=== PATIENT | female | born 1955 | race Caucasian/White ===

== ENCOUNTER → 2021-06-04 | Outpatient (CLI) ==
[~2021-06-04] MED LIST: ASPI81TA26 PO; CETI10TA4 PO; CORE25TA PO; DICY20TA20 PO; ENAL1TAB46 PO; FLON1SPR; FLUT11IN INH; LEXA1TAB PO; OMEP40CA4 PO; PROAAER10 INH; SING10TA32 PO; SPIR-10 PO; TOPA50TA8 PO; VITA400C56 PO; XANA0.5T PO; [UNRECOGNIZED DRUG - CODE] PO
== END ==
LOC: M LABSMTC 10:26
PROVIDERS: ATTEND Anesthesiology
DX: Z01.818 Encounter for other preprocedural examination (principal); Z11.52 Encounter for screening for COVID-19

== ENCOUNTER 2021-06-09 11:05 | Day surgery (SDC) | payer MEDICARE, OTHER ==
[~2021-06-09] VITALS: Ht 160 cm; Wt 67.9 kg
[2021-06-09] MEDS ORDERED: ACET325C5 PO (11:35)
[2021-06-09] MEDS ORDERED: ATOR1TAB21 PO (11:35)
[2021-06-09] MEDS ORDERED: propofoL 200 MG/20 ML VIAL As Ordered ONE (12:46)
[2021-06-09] MEDS ORDERED: ACETAMINOPHEN 1000MG 100ML IV BTL (OFIRMEV) (J0131 PER 10MG) As Ordered ONE (12:46)
[2021-06-09] MEDS ORDERED: LIDOCAINE 2% 100MG/5ML SDV (FOR ANES.) As Ordered ONE (12:46)
[2021-06-09] MEDS ORDERED: MIDAZOLAM INJ 2MG/2ML VIAL (J2250 PER 1MG) As Ordered ONE (12:46)
[2021-06-09] MEDS ORDERED: dexameTHASONE 4 MG/ML 1ML VIAL (J1100 PER 1MG) As Ordered ONE (12:46)
[2021-06-09] MEDS ORDERED: ONDANSETRON 4MG/2ML VIAL As Ordered ONE (12:46)
[2021-06-09] MEDS ORDERED: fentaNYL 100 MCG/2 ML INJECTION As Ordered ONE (12:46)
[2021-06-09] MEDS ORDERED: LR 1,000 ML IV SCH ×2 (16:35)
[2021-06-09] MEDS ORDERED: ONDANSETRON 4MG/2ML VIAL IV PRN (16:35)
[2021-06-09] MEDS ORDERED: fentaNYL 100 MCG/2 ML INJECTION IV PRN (16:35)
[2021-06-09] MEDS ORDERED: NORCO, ANEXSIA 5/325MG TABLET (HYDROcodone/ACETAMINOPHEN) PO PRN (16:35)
[2021-06-09 17:20] VITALS: BP 111/58
== END 2021-06-09 17:32 | disposition home or self-care (01) ==
LOC: M SDC 11:05
PROVIDERS: ATTEND Obstetrics & Gynecology
DX: R31.9 Hematuria, unspecified (principal); E78.5 Hyperlipidemia, unspecified; I25.2 Old myocardial infarction; I10 Essential (primary) hypertension; Z95.0 Presence of cardiac pacemaker; L40.9 Psoriasis, unspecified; F41.9 Anxiety disorder, unspecified; F32.9 Major depressive disorder, single episode, unspecified; Z79.51 Long term (current) use of inhaled steroids; J45.909 Unspecified asthma, uncomplicated; Z88.0 Allergy status to penicillin; Z88.2 Allergy status to sulfonamides; Z88.8 Allergy status to other drugs, medicaments and biological substances; Z91.018 Allergy to other foods; Z79.899 Other long term (current) drug therapy; Z79.82 Long term (current) use of aspirin
CPT/HCPCS: 52000; J0131; J1100; J2250; J2405; J3010

== ENCOUNTER 2022-11-02 12:09 | Emergency (ER) | payer MEDICARE, OTHER ==
[~2022-11-02] VITALS: Ht 160 cm; Wt 71.0 kg
[~2022-11-02 12:09] MED LIST changes: +ACET325C5 PO; +ATOR1TAB21 PO; -FLUT11IN INH; +FLUT12AE6 INH; +MONT-5 PO; -SING10TA32 PO
[2022-11-02 12:10] VITALS: BP 119/62; TEMP 96.1; O2SAT 100
[2022-11-02 12:59] LABS: BASO % 0.6 % (0.0-1.0); EOS # 0.3 10^3/uL (0.0-0.5); EOS % 4.5 % (0.0-3.0); HEMATOCRIT 40.2 % (36.0-47.0); HEMOGLOBIN 13.4 g/dl (12.0-15.5); LYMPH # 1.3 10^3/uL (1.5-5.0); LYMPH % 20.7 % (24.0-44.0); MEAN CORPUSCULAR HEMOGLOBIN 30.8 pg (27.0-33.0); MEAN CORPUSCULAR HGB CONC 33.3 g/dl (32.0-36.5); MEAN CORPUSCULAR VOLUME 92.4 fl (80.0-96.0); MONO # 0.6 10^3/uL (0.0-0.8); MONO % 9.1 % (2.0-8.0); NEUTROPHILS # 4.2 10^3/uL (1.5-8.5); NEUTROPHILS % 64.5 % (36.0-66.0); PLATELET COUNT, AUTOMATED 211 10^3/uL (150-450); RED BLOOD COUNT 4.35 10^6/uL (4.00-5.40); WHITE BLOOD COUNT 6.5 10^3/uL (4.0-10.0)
[2022-11-02 13:04] LABS: CK-MB VALUE MASS 1.9 NG/ML (<3.6); LIPASE 62 U/L (12-53)
[2022-11-02 13:06] LABS: ALBUMIN 3.6 G/DL (3.2-5.2); ALKALINE PHOSPHATASE 171 U/L (46-116); ALT/SGPT 18 U/L (7.0-40); AST/SGOT 13 U/L (<34); BILIRUBIN,DIRECT < 0.1 MG/DL (<0.4); BILIRUBIN,TOTAL 0.3 MG/DL (0.3-1.2); BLOOD UREA NITROGEN 14 MG/DL (9-23); CALCIUM LEVEL 8.3 MG/DL (8.3-10.6); CARBON DIOXIDE LEVEL 28 MMOL/L (20-31); CHLORIDE LEVEL 103 MMOL/L (98-107); CPK CREATINE PHOSPHOKINASE 120 U/L (34-145); CREATININE FOR GFR 0.74 MG/DL (0.55-1.30); GLOMERULAR FILTRATION RATE > 60.0 (>45); GLUCOSE, FASTING 92 MG/DL (74-106); MB/CK RELATIVE INDEX 1.58 (< OR =4); POTASSIUM SERUM 4.4 MMOL/L (3.5-5.1); SODIUM LEVEL 136 MMOL/L (136-145); TOTAL PROTEIN 6.7 G/DL (5.7-8.2)
[2022-11-02] MEDS ORDERED: ISOVUE-370 76% 100ML VIAL As Ordered ONE (14:07)
[2022-11-02] MEDS ORDERED: predniSONE 20 MG TAB PO ONE (16:15)
[2022-11-02] MEDS ORDERED: PRED20TA PO (16:19)
== END 2022-11-02 16:43 | disposition home or self-care (01) ==
LOC: M ED 12:09
DX: R07.9 Chest pain, unspecified (principal); J45.901 Unspecified asthma with (acute) exacerbation; I25.2 Old myocardial infarction; I10 Essential (primary) hypertension; K21.9 Gastro-esophageal reflux disease without esophagitis; K58.9 Irritable bowel syndrome, unspecified; F41.9 Anxiety disorder, unspecified; Z87.891 Personal history of nicotine dependence; Z95.0 Presence of cardiac pacemaker; Z88.0 Allergy status to penicillin; Z88.2 Allergy status to sulfonamides; Z88.8 Allergy status to other drugs, medicaments and biological substances; Z91.018 Allergy to other foods; Z79.52 Long term (current) use of systemic steroids; Z79.82 Long term (current) use of aspirin; Z79.899 Other long term (current) drug therapy
CPT/HCPCS: 36415; 71046; 71275; 80048; 80076; 82550; 82553; 83690; 83880; 84484; 85025; 93005; 99284; J7512; Q9967

== ENCOUNTER 2023-01-01 15:12 | Observation (INO) | payer MEDICARE, OTHER ==
[~2023-01-01] VITALS: Ht 160 cm; Wt 72.4 kg
[~2023-01-01 15:12] MED LIST changes: +PRED20TA PO
[2023-01-01] MEDS ORDERED: ASPIRIN 81MG CHEW TABLET PO ONE (16:05)
[2023-01-01 16:19] LABS: HEMATOCRIT 39.2 % (36.0-47.0); HEMOGLOBIN 13.7 g/dl (12.0-15.5); MEAN CORPUSCULAR HEMOGLOBIN 31.1 pg (27.0-33.0); MEAN CORPUSCULAR HGB CONC 34.9 g/dl (32.0-36.5); MEAN CORPUSCULAR VOLUME 88.9 fl (80.0-96.0); PLATELET COUNT, AUTOMATED 230 10^3/uL (150-450); RED BLOOD COUNT 4.41 10^6/uL (4.00-5.40); WHITE BLOOD COUNT 5.9 10^3/uL (4.0-10.0)
[2023-01-01 16:49] LABS: ATYPICAL LYMPH 9 % (0-5); BASOPHILS 1 % (0-1); EOSINOPHILS 3 % (0-3); LYMPHOCYTES 25 % (16-44); MONOCYTES 7 % (0-5); NEUTROPHILS 55 % (28-66); PLATELET ESTIMATE NORMAL (NORMAL)
[2023-01-01 16:50] LABS: THYROID STIMULATING HORMONE 1.977 uIU/ML (0.55-4.78)
[2023-01-01 16:54] LABS: BLOOD UREA NITROGEN 12 MG/DL (9-23); CALCIUM LEVEL 7.9 MG/DL (8.3-10.6); CARBON DIOXIDE LEVEL 28 MMOL/L (20-31); CHLORIDE LEVEL 92 MMOL/L (98-107); CK-MB VALUE MASS 2.9 NG/ML (<3.6); CPK CREATINE PHOSPHOKINASE 254 U/L (34-145); CREATININE FOR GFR 0.64 MG/DL (0.55-1.30); FREE T4 1.23 NG/DL (0.89-1.76); GLOMERULAR FILTRATION RATE > 60.0 (>45); GLUCOSE, FASTING 115 MG/DL (74-106); MB/CK RELATIVE INDEX 1.14 (< OR =4); POTASSIUM SERUM 4.8 MMOL/L (3.5-5.1); SODIUM LEVEL 124 MMOL/L (136-145)
[2023-01-01] MEDS ORDERED: ISOVUE-370 76% 100ML VIAL As Ordered ONE (17:00)
[2023-01-01 17:49] LABS: CK-MB VALUE MASS 2.7 NG/ML (<3.6)
[2023-01-01 17:51] LABS: MB/CK RELATIVE INDEX 1.22 (< OR =4)
[2023-01-01] MEDS ORDERED: MORPHINE 2 MG/ML 1ML VIAL IV PRN (18:30)
[2023-01-01] MEDS ORDERED: SODIUM CHLORIDE NASAL 0.65% SPRAY BTL (OCEAN) PRN (18:30)
[2023-01-01] MEDS ORDERED: CEPACOL LOZENGE PO PRN (18:30)
[2023-01-01] MEDS ORDERED: OXYMETAZOLINE 0.05% NASAL SPRAY (AFRIN) ONE (18:30)
[2023-01-01] MEDS ORDERED: NITROGLYCERIN 0.4MG SUBL TABLET SL PRN (18:30)
[2023-01-01] MEDS ORDERED: IPRATROPIUM 0.5MG/ALBUTEROL 2.5MG INH SOL UD 3ML (DUONEB) NEB PRN (18:35)
[2023-01-01 20:00] LABS: THYROID STIMULATING HORMONE 2.234 uIU/ML (0.55-4.78)
[2023-01-01 20:04] LABS: BLOOD UREA NITROGEN 11 MG/DL (9-23); CALCIUM LEVEL 8.5 MG/DL (8.3-10.6); CARBON DIOXIDE LEVEL 31 MMOL/L (20-31); CHLORIDE LEVEL 94 MMOL/L (98-107); CREATININE FOR GFR 0.68 MG/DL (0.55-1.30); GLOMERULAR FILTRATION RATE > 60.0 (>45); GLUCOSE, FASTING 91 MG/DL (74-106); POTASSIUM SERUM 3.3 MMOL/L (3.5-5.1); SODIUM LEVEL 129 MMOL/L (136-145)
[2023-01-01 20:33] LABS: OSMOLALITY SERUM 266 MOSM/KG (280-301)
[2023-01-01] MEDS: CARVedilol 12.5 MG TAB PO SCH (21:00)
[2023-01-01] MEDS ORDERED: ETHACRYNIC ACID 25 MG PO SCH (21:00)
[2023-01-01] MEDS: IPRATROPIUM 0.5MG/ALBUTEROL 2.5MG INH SOL UD 3ML (DUONEB) NEB SCH (21:11)
[2023-01-01] MEDS ORDERED: PROA1AER2 INH (21:35)
[2023-01-01] MEDS ORDERED: TOPI100T9 PO (21:35)
[2023-01-01] MEDS ORDERED: HOME MED LIST COMPLETE! XX SCH (21:40)
[2023-01-01] MEDS ORDERED: ETHA25TA2 PO (22:12)
[2023-01-02] MEDS: SUCRALFATE SUSP 1GM/10ML UD PO SCH ×5 (00:29→20:45)
[2023-01-02] MEDS: TOPIRAMATE (TopAMAX) 100 MG TAB PO SCH ×2 (00:29→20:48)
[2023-01-02] MEDS: ALPRAZolam 0.5 MG TAB PO SCH ×4 (00:29→20:45)
[2023-01-02] MEDS: DICYCLOMINE 10 MG CAP PO SCH ×4 (00:30→20:46)
[2023-01-02] MEDS: PANTOPRAZOLE 40MG TAB (PROTONIX) PO SCH ×2 (00:30→08:40)
[2023-01-02] MEDS: ESCITALOPRAM OXALATE 10 MG TAB (LEXAPRO) PO SCH ×3 (00:30→20:47)
[2023-01-02] MEDS: MONTELUKAST 10 MG TAB PO SCH ×2 (00:30→20:46)
[2023-01-02] MEDS: ATORVASTATIN 20 MG TAB PO SCH ×2 (00:30→20:46)
[2023-01-02 01:33] LABS: BLOOD UREA NITROGEN 12 MG/DL (9-23); CALCIUM LEVEL 8.8 MG/DL (8.3-10.6); CARBON DIOXIDE LEVEL 33 MMOL/L (20-31); CHLORIDE LEVEL 98 MMOL/L (98-107); CREATININE FOR GFR 0.71 MG/DL (0.55-1.30); GLOMERULAR FILTRATION RATE > 60.0 (>45); GLUCOSE, FASTING 100 MG/DL (74-106); POTASSIUM SERUM 3.6 MMOL/L (3.5-5.1); SODIUM LEVEL 133 MMOL/L (136-145)
[2023-01-02 01:46] LABS: CPK CREATINE PHOSPHOKINASE 227 U/L (34-145); MB/CK RELATIVE INDEX 1.32 (< OR =4)
[2023-01-02] MEDS ORDERED: KCL 20MEQ IN D5W 1000ML 1,000 ML IV SCH (07:45)
[2023-01-02 08:20] LABS: HEMATOCRIT 43.4 % (36.0-47.0); HEMOGLOBIN 14.7 g/dl (12.0-15.5); MEAN CORPUSCULAR HEMOGLOBIN 30.8 pg (27.0-33.0); MEAN CORPUSCULAR HGB CONC 33.9 g/dl (32.0-36.5); PLATELET COUNT, AUTOMATED 221 10^3/uL (150-450); RED BLOOD COUNT 4.77 10^6/uL (4.00-5.40); WHITE BLOOD COUNT 5.2 10^3/uL (4.0-10.0)
[2023-01-02] MEDS: IPRATROPIUM 0.5MG/ALBUTEROL 2.5MG INH SOL UD 3ML (DUONEB) NEB SCH ×4 (08:34→21:32)
[2023-01-02] MEDS: FLUTICASONE HFA 110MCG 12GM INHALER (FLOVENT) INH SCH ×2 (08:34→21:33)
[2023-01-02] MEDS: CETIRIZINE (ZyrTEC) 10 MG TAB PO SCH (08:40)
[2023-01-02] MEDS: ASPIRIN 81MG CHEW TABLET PO SCH (08:40)
[2023-01-02] MEDS: CARVedilol 12.5 MG TAB PO SCH ×2 (08:41→20:46)
[2023-01-02] MEDS: OXYMETAZOLINE 0.05% NASAL SPRAY (AFRIN) SCH ×2 (08:42→20:49)
[2023-01-02 08:44] LABS: BLOOD UREA NITROGEN 11 MG/DL (9-23); CALCIUM LEVEL 9.1 MG/DL (8.3-10.6); CARBON DIOXIDE LEVEL 32 MMOL/L (20-31); CHLORIDE LEVEL 101 MMOL/L (98-107); CREATININE FOR GFR 0.69 MG/DL (0.55-1.30); GLOMERULAR FILTRATION RATE > 60.0 (>45); GLUCOSE, FASTING 118 MG/DL (74-106); POTASSIUM SERUM 3.8 MMOL/L (3.5-5.1); SODIUM LEVEL 135 MMOL/L (136-145)
[2023-01-02 08:48] LABS: CPK CREATINE PHOSPHOKINASE 185 U/L (34-145); MB/CK RELATIVE INDEX 1.08 (< OR =4)
[2023-01-02] MEDS ORDERED: ETHACRYNIC ACID 25 MG PO SCH (09:00)
[2023-01-02 12:36] LABS: BLOOD UREA NITROGEN 11 MG/DL (9-23); CARBON DIOXIDE LEVEL 30 MMOL/L (20-31); CHLORIDE LEVEL 101 MMOL/L (98-107); CREATININE FOR GFR 0.65 MG/DL (0.55-1.30); GLOMERULAR FILTRATION RATE > 60.0 (>45); GLUCOSE, FASTING 102 MG/DL (74-106); POTASSIUM SERUM 3.5 MMOL/L (3.5-5.1); SODIUM LEVEL 136 MMOL/L (136-145)
[2023-01-02 17:27] LABS: BLOOD UREA NITROGEN 11 MG/DL (9-23); CALCIUM LEVEL 8.4 MG/DL (8.3-10.6); CARBON DIOXIDE LEVEL 31 MMOL/L (20-31); CHLORIDE LEVEL 97 MMOL/L (98-107); CK-MB VALUE MASS 1.8 NG/ML (<3.6); CREATININE FOR GFR 0.66 MG/DL (0.55-1.30); GLOMERULAR FILTRATION RATE > 60.0 (>45); GLUCOSE, FASTING 74 MG/DL (74-106); MB/CK RELATIVE INDEX 1.03 (< OR =4); POTASSIUM SERUM 3.5 MMOL/L (3.5-5.1); SODIUM LEVEL 131 MMOL/L (136-145)
[2023-01-02 20:00] VITALS: BP 121/58; TEMP 98.1; O2SAT 98
[2023-01-03 00:34] LABS: BLOOD UREA NITROGEN 11 MG/DL (9-23); CALCIUM LEVEL 8.6 MG/DL (8.3-10.6); CARBON DIOXIDE LEVEL 29 MMOL/L (20-31); CHLORIDE LEVEL 99 MMOL/L (98-107); CREATININE FOR GFR 0.63 MG/DL (0.55-1.30); GLOMERULAR FILTRATION RATE > 60.0 (>45); GLUCOSE, FASTING 94 MG/DL (74-106); POTASSIUM SERUM 3.6 MMOL/L (3.5-5.1); SODIUM LEVEL 131 MMOL/L (136-145)
[2023-01-03 05:26] VITALS: BP 117/58; TEMP 97.3; O2SAT 97
[2023-01-03 06:11] LABS: HEMOGLOBIN 13.8 g/dl (12.0-15.5); MEAN CORPUSCULAR HEMOGLOBIN 30.3 pg (27.0-33.0); MEAN CORPUSCULAR HGB CONC 33.7 g/dl (32.0-36.5); MEAN CORPUSCULAR VOLUME 89.9 fl (80.0-96.0); PLATELET COUNT, AUTOMATED 223 10^3/uL (150-450); RED BLOOD COUNT 4.56 10^6/uL (4.00-5.40); WHITE BLOOD COUNT 4.1 10^3/uL (4.0-10.0)
[2023-01-03 06:43] LABS: BLOOD UREA NITROGEN 10 MG/DL (9-23); CALCIUM LEVEL 8.9 MG/DL (8.3-10.6); CARBON DIOXIDE LEVEL 28 MMOL/L (20-31); CHLORIDE LEVEL 104 MMOL/L (98-107); CREATININE FOR GFR 0.58 MG/DL (0.55-1.30); GLOMERULAR FILTRATION RATE > 60.0 (>45); GLUCOSE, FASTING 108 MG/DL (74-106); POTASSIUM SERUM 3.7 MMOL/L (3.5-5.1); SODIUM LEVEL 138 MMOL/L (136-145)
[2023-01-03] MEDS: FLUTICASONE HFA 110MCG 12GM INHALER (FLOVENT) INH SCH (07:10)
[2023-01-03] MEDS: IPRATROPIUM 0.5MG/ALBUTEROL 2.5MG INH SOL UD 3ML (DUONEB) NEB SCH ×2 (07:12→11:25)
[2023-01-03] MEDS: ALPRAZolam 0.5 MG TAB PO SCH (08:46)
[2023-01-03] MEDS: SUCRALFATE SUSP 1GM/10ML UD PO SCH ×2 (08:46→11:17)
[2023-01-03] MEDS: ASPIRIN 81MG CHEW TABLET PO SCH (08:46)
[2023-01-03] MEDS: DICYCLOMINE 10 MG CAP PO SCH (08:47)
[2023-01-03] MEDS: ESCITALOPRAM OXALATE 10 MG TAB (LEXAPRO) PO SCH (08:48)
[2023-01-03] MEDS: PANTOPRAZOLE 40MG TAB (PROTONIX) PO SCH (08:48)
[2023-01-03] MEDS: CETIRIZINE (ZyrTEC) 10 MG TAB PO SCH (08:48)
[2023-01-03] MEDS: OXYMETAZOLINE 0.05% NASAL SPRAY (AFRIN) SCH (08:49)
[2023-01-03 08:50] VITALS: BP 116/58
[2023-01-03] MEDS: CARVedilol 12.5 MG TAB PO SCH (08:50)
== END 2023-01-03 13:35 | disposition home or self-care (01) ==
LOC: M ED 15:12 → M ED INP 17:55 → INTOOBSV 17:55 → M MS5PR 01-02 16:15
PROVIDERS: ADMIT General Practice; ATTEND Student in an Organized Health Care Education/Training Program
DX: J06.9 Acute upper respiratory infection, unspecified (principal); B97.89 Other viral agents as the cause of diseases classified elsewhere; I25.10 Atherosclerotic heart disease of native coronary artery without angina pectoris; I25.2 Old myocardial infarction; Z95.810 Presence of automatic (implantable) cardiac defibrillator; F41.9 Anxiety disorder, unspecified; F32.A Depression, unspecified; I11.9 Hypertensive heart disease without heart failure; I50.20 Unspecified systolic (congestive) heart failure; J45.909 Unspecified asthma, uncomplicated; Z88.0 Allergy status to penicillin; Z88.2 Allergy status to sulfonamides; Z88.1 Allergy status to other antibiotic agents; Z91.018 Allergy to other foods; J30.2 Other seasonal allergic rhinitis; Z79.899 Other long term (current) drug therapy
CPT/HCPCS: 36415; 71046; 71275; 80048; 82550; 82553; 83930; 84439; 84443; 84484; 85025; 85027; 87486; 87581; 87633; 87798; 93005; 93041; 94640; 94760; 96360; 96361; 97161; 99285; G0378; Q9967

== ENCOUNTER 2023-02-11 13:02 | Emergency (ER) | payer MEDICARE, OTHER ==
[~2023-02-11] VITALS: Ht 160 cm; Wt 69.9 kg
[~2023-02-11 13:02] MED LIST changes: +ETHA25TA2 PO; +PROA1AER2 INH; +TOPI100T9 PO
[2023-02-11 14:40] LABS: BASO % 0.4 % (0.0-1.0); EOS # 0.1 10^3/uL (0.0-0.5); EOS % 1.7 % (0.0-3.0); HEMATOCRIT 39.3 % (36.0-47.0); HEMOGLOBIN 13.4 g/dl (12.0-15.5); LYMPH # 1.2 10^3/uL (1.5-5.0); LYMPH % 15.2 % (24.0-44.0); MEAN CORPUSCULAR HGB CONC 34.1 g/dl (32.0-36.5); MONO # 0.5 10^3/uL (0.0-0.8); MONO % 5.6 % (2.0-8.0); NEUTROPHILS # 6.1 10^3/uL (1.5-8.5); NEUTROPHILS % 76.6 % (36.0-66.0); PLATELET COUNT, AUTOMATED 193 10^3/uL (150-450); RED BLOOD COUNT 4.32 10^6/uL (4.00-5.40)
[2023-02-11 15:03] LABS: LIPASE 43 U/L (12-53)
[2023-02-11 15:05] LABS: ALBUMIN 3.8 G/DL (3.2-5.2); ALKALINE PHOSPHATASE 469 U/L (46-116); ALT/SGPT 123 U/L (7.0-40); AMYLASE 33 U/L (30-118); AST/SGOT 79 U/L (<34); BILIRUBIN,DIRECT 0.2 MG/DL (<0.4); BILIRUBIN,TOTAL 0.4 MG/DL (0.3-1.2); BLOOD UREA NITROGEN 11 MG/DL (9-23); CALCIUM LEVEL 8.9 MG/DL (8.3-10.6); CARBON DIOXIDE LEVEL 25 MMOL/L (20-31); CHLORIDE LEVEL 102 MMOL/L (98-107); CREATININE FOR GFR 0.74 MG/DL (0.55-1.30); GLOMERULAR FILTRATION RATE > 60.0 (>45); GLUCOSE, FASTING 91 MG/DL (74-106); POTASSIUM SERUM 3.5 MMOL/L (3.5-5.1); SODIUM LEVEL 136 MMOL/L (136-145); TOTAL PROTEIN 6.7 G/DL (5.7-8.2)
[2023-02-11] MEDS ORDERED: ISOVUE-370 76% 100ML VIAL As Ordered ONE (16:35)
[2023-02-11] MEDS ORDERED: NITR-67 PO ×2 (19:04→19:07)
[2023-02-11 19:13] VITALS: BP 116/55; TEMP 97.5; O2SAT 99
== END 2023-02-11 19:32 | disposition home or self-care (01) ==
LOC: M ED 16:00
DX: N39.0 Urinary tract infection, site not specified (principal); Z87.891 Personal history of nicotine dependence; Z88.0 Allergy status to penicillin; Z88.2 Allergy status to sulfonamides; Z88.5 Allergy status to narcotic agent; Z91.018 Allergy to other foods; Z91.048 Other nonmedicinal substance allergy status; Z79.52 Long term (current) use of systemic steroids; Z79.83 Long term (current) use of bisphosphonates; Z79.899 Other long term (current) drug therapy
CPT/HCPCS: 36415; 74177; 80048; 80076; 81001; 82150; 83690; 85025; 87086; 87486; 87581; 87633; 87798; 99284; Q9967

== ENCOUNTER 2023-02-25 11:42 | Emergency (ER) | payer MEDICARE, OTHER ==
[~2023-02-25] VITALS: Ht 160 cm; Wt 66.6 kg
[~2023-02-25 11:42] MED LIST changes: +NITR-67 PO
[2023-02-25] MEDS ORDERED: NS 1,000 ML IV ONE (12:00)
[2023-02-25] MEDS ORDERED: ONDANSETRON 4MG 2ML VIAL IV ONE (12:05)
[2023-02-25] MEDS ORDERED: JARD1TAB (12:11)
[2023-02-25] MEDS ORDERED: SERT50TA29 (12:11)
[2023-02-25 12:35] LABS: BASO % 0.3 % (0.0-1.0); EOS # 0.1 10^3/uL (0.0-0.5); EOS % 0.4 % (0.0-3.0); HEMATOCRIT 40.7 % (36.0-47.0); HEMOGLOBIN 14.1 g/dl (12.0-15.5); LYMPH # 0.8 10^3/uL (1.5-5.0); LYMPH % 6.9 % (24.0-44.0); MEAN CORPUSCULAR HEMOGLOBIN 31.3 pg (27.0-33.0); MEAN CORPUSCULAR HGB CONC 34.6 g/dl (32.0-36.5); MEAN CORPUSCULAR VOLUME 90.4 fl (80.0-96.0); MONO # 0.8 10^3/uL (0.0-0.8); MONO % 6.8 % (2.0-8.0); NEUTROPHILS # 10.2 10^3/uL (1.5-8.5); NEUTROPHILS % 85.3 % (36.0-66.0); PLATELET COUNT, AUTOMATED 211 10^3/uL (150-450)
[2023-02-25 12:39] LABS: ALBUMIN 3.9 G/DL (3.2-5.2); ALKALINE PHOSPHATASE 962 U/L (46-116); ALT/SGPT 643 U/L (7.0-40); AST/SGOT 462 U/L (<34); BILIRUBIN,DIRECT 3.4 MG/DL (<0.4); BILIRUBIN,TOTAL 4.6 MG/DL (0.3-1.2); BLOOD UREA NITROGEN 12 MG/DL (9-23); CALCIUM LEVEL 9.3 MG/DL (8.3-10.6); CARBON DIOXIDE LEVEL 25 MMOL/L (20-31); CHLORIDE LEVEL 104 MMOL/L (98-107); CREATININE FOR GFR 0.74 MG/DL (0.55-1.30); GLOMERULAR FILTRATION RATE > 60.0 (>45); GLUCOSE, FASTING 118 MG/DL (74-106); POTASSIUM SERUM 4.1 MMOL/L (3.5-5.1); SODIUM LEVEL 138 MMOL/L (136-145); TOTAL PROTEIN 7.4 G/DL (5.7-8.2)
[2023-02-25] MEDS ORDERED: ISOVUE-370 76% 100ML VIAL As Ordered ONE (12:53)
[2023-02-25 13:03] LABS: LIPASE > 3500 U/L (12-53)
[2023-02-25] MEDS ORDERED: metroNIDAZOLE 500 MG in IV 1 EA IV ONE (13:55)
[2023-02-25] MEDS ORDERED: CIPROFLOXACIN 400 MG in IV 1 EA IV ONE (13:55)
[2023-02-25 15:18] VITALS: BP 133/60; O2SAT 98
[2023-02-25 15:27] VITALS: TEMP 97.8
== END 2023-02-25 15:27 | disposition short-term general hospital (02) ==
LOC: EDBD 11:42 → M ED 11:42
DX: K80.50 Calculus of bile duct without cholangitis or cholecystitis without obstruction (principal); K85.90 Acute pancreatitis without necrosis or infection, unspecified; I11.9 Hypertensive heart disease without heart failure; I50.20 Unspecified systolic (congestive) heart failure; I25.2 Old myocardial infarction; J45.909 Unspecified asthma, uncomplicated; Z91.018 Allergy to other foods; Z88.0 Allergy status to penicillin; Z88.2 Allergy status to sulfonamides; Z88.8 Allergy status to other drugs, medicaments and biological substances; Z79.899 Other long term (current) drug therapy; Z79.51 Long term (current) use of inhaled steroids
CPT/HCPCS: 74177; 80048; 80076; 83690; 85025; 87635; 93005; 96365; 96367; 96375; 99284; J0744; J1836; J2405; Q9967

== ENCOUNTER 2023-07-13 10:31 | Emergency (ER) | payer MEDICARE, OTHER ==
[~2023-07-13] VITALS: Ht 160 cm; Wt 65.8 kg
[~2023-07-13 10:31] MED LIST changes: +JARD1TAB; +SERT50TA29
[2023-07-13 14:34] VITALS: BP 112/70; TEMP 97; O2SAT 100
== END 2023-07-13 14:38 | disposition home or self-care (01) ==
LOC: M ED 10:31
DX: S00.83XA Contusion of other part of head, initial encounter (principal); W22.8XXA Striking against or struck by other objects, initial encounter; J32.0 Chronic maxillary sinusitis; M50.323 Other cervical disc degeneration at C6-C7 level; M48.02 Spinal stenosis, cervical region; M46.92 Unspecified inflammatory spondylopathy, cervical region; R51.9 Headache, unspecified; K58.9 Irritable bowel syndrome, unspecified; F17.200 Nicotine dependence, unspecified, uncomplicated; Z86.79 Personal history of other diseases of the circulatory system; Z95.0 Presence of cardiac pacemaker; Z88.0 Allergy status to penicillin; Z88.1 Allergy status to other antibiotic agents; Z88.2 Allergy status to sulfonamides; Z88.8 Allergy status to other drugs, medicaments and biological substances; Z91.018 Allergy to other foods; Z79.52 Long term (current) use of systemic steroids; Z79.83 Long term (current) use of bisphosphonates; Z79.02 Long term (current) use of antithrombotics/antiplatelets; Z79.899 Other long term (current) drug therapy; Y92.009 Unspecified place in unspecified non-institutional (private) residence as the place of occurrence of the external cause; Y93.89 Activity, other specified; Y99.9 Unspecified external cause status

== ENCOUNTER → 2023-10-29 | Outpatient (CLI) | payer MEDICARE, OTHER | LOC: M SOG 07:59 | PROVIDERS: ATTEND Orthopaedic Surgery | DX: M54.50 Low back pain, unspecified (principal); Z53.9 Procedure and treatment not carried out, unspecified reason ==

== ENCOUNTER → 2023-11-01 | Outpatient (CLI) | payer MEDICARE, OTHER | LOC: M SOG 07:55 | PROVIDERS: ATTEND Orthopaedic Surgery | DX: M54.50 Low back pain, unspecified (principal) ==

== ENCOUNTER 2024-02-01 20:02 | Inpatient (IN) | payer MEDICARE, OTHER ==
[~2024-02-01] VITALS: Ht 157.5 cm; Wt 61.8 kg
[~2024-02-01 20:02] MED LIST changes: -FLON1SPR; +FLON1SPR NARES
[2024-02-01 21:28] LABS: BASO % 0.6 % (0.0-1.0); EOS # 0.2 10^3/uL (0.0-0.5); EOS % 3.4 % (0.0-3.0); HEMATOCRIT 35.6 % (36.0-47.0); HEMOGLOBIN 12.3 g/dl (12.0-15.5); LYMPH # 1.9 10^3/uL (1.5-5.0); LYMPH % 37.3 % (24.0-44.0); MEAN CORPUSCULAR HEMOGLOBIN 30.9 pg (27.0-33.0); MEAN CORPUSCULAR HGB CONC 34.6 g/dl (32.0-36.5); MEAN CORPUSCULAR VOLUME 89.4 fl (80.0-96.0); MONO # 0.4 10^3/uL (0.0-0.8); MONO % 7.3 % (2.0-8.0); NEUTROPHILS # 2.6 10^3/uL (1.5-8.5); NEUTROPHILS % 51.4 % (36.0-66.0); PLATELET COUNT, AUTOMATED 188 10^3/uL (150-450); RED BLOOD COUNT 3.98 10^6/uL (4.00-5.40)
[2024-02-01 22:15] LABS: CK-MB VALUE MASS 1.5 NG/ML (<3.6)
[2024-02-01 22:17] LABS: ALBUMIN 3.5 G/DL (3.2-5.2); ALKALINE PHOSPHATASE 177 U/L (35-104); ALT/SGPT 15 U/L (7.0-40); AST/SGOT 15 U/L (<34); BILIRUBIN,DIRECT < 0.1 MG/DL (<0.4); BILIRUBIN,TOTAL 0.3 MG/DL (0.3-1.2); BLOOD UREA NITROGEN 14 MG/DL (9-23); CARBON DIOXIDE LEVEL 21 MMOL/L (20-31); CHLORIDE LEVEL 107 MMOL/L (98-107); GLOMERULAR FILTRATION RATE > 60.0 (>45); GLUCOSE, FASTING 104 MG/DL (74-106); POTASSIUM SERUM 3.9 MMOL/L (3.5-5.1); SODIUM LEVEL 135 MMOL/L (136-145); TOTAL PROTEIN 6.5 G/DL (5.7-8.2)
[2024-02-01 22:19] LABS: THYROID STIMULATING HORMONE 2.813 uIU/ML (0.55-4.78); THYROXINE (T4) 8.3 UG/DL (4.5-10.9)
[2024-02-01 22:20] LABS: CPK CREATINE PHOSPHOKINASE 116 U/L (34-145); MB/CK RELATIVE INDEX 1.29 (< OR =4)
[2024-02-01] MEDS ORDERED: ISOVUE-370 76% 100ML VIAL As Ordered ONE (22:22)
[2024-02-01] MEDS: NS 500 ML IV ONE (23:26)
[2024-02-01 23:43] LABS: CK-MB VALUE MASS < 1.0 NG/ML (<3.6)
[2024-02-01 23:45] LABS: CPK CREATINE PHOSPHOKINASE 73 U/L (34-145); MB/CK RELATIVE INDEX 1.36 (< OR =4)
[2024-02-02 00:41] LABS: VENOUS BASE EXCESS -4.6 (-2.0-2.0); VENOUS HCO3 22.8 MMOL/L (23.0-27.0); VENOUS O2 SATURATION 67.7 % (60.0-80.0); VENOUS PARTIAL PRESSURE CO2 51.3 mmHg (38.0-50.0); VENOUS PARTIAL PRESSURE O2 36.4 mmHg (30.0-50.0); VENOUS PH 7.265 UNITS (7.330-7.430); VENOUS TOTAL CO2 24.3 MMOL/L (24.0-28.0)
[2024-02-02] MEDS ORDERED: MAALOX 30 ML SUSP *UDC PO PRN (00:45)
[2024-02-02] MEDS ORDERED: MOM 30ML SUSPENSION UDC PO PRN (00:45)
[2024-02-02] MEDS ORDERED: ATOR40TA75 PO (00:47)
[2024-02-02] MEDS ORDERED: ARIP1TAB4 PO (00:47)
[2024-02-02] MEDS ORDERED: FLUT12AE2 INH (00:47)
[2024-02-02] MEDS ORDERED: ACET-683 PO (00:47)
[2024-02-02] MEDS ORDERED: ZOLO100T PO (00:47)
[2024-02-02] MEDS ORDERED: HOME MED LIST COMPLETE! XX SCH (00:55)
[2024-02-02 01:09] LABS: INR 1.11; PARTIAL THROMBOPLASTIN TIME 35.9 SECONDS (24.8-34.2); PROTHROMBIN TIME 14.6 SECONDS (12.5-14.5)
[2024-02-02 01:20] LABS: ABG BASE EXCESS -4.4 (-2.0-2.0); ABG HCO3 20.1 MMOL/L (22.0-26.0); ABG O2 SATURATION 98.8 % (95.0-99.0); ABG PARTIAL PRESSURE O2 149.3 mmHg (75.0-100.0); ABG STANDARD HCO3 20.9 MMOL/L. (22.0-26.0); ABG TOTAL CO2 21.2 MMOL/L (23.0-31.0); ABG pH (ARTERIAL) 7.377 UNITS (7.350-7.450)
[2024-02-02 06:08] LABS: VENOUS BASE EXCESS -1.3 (-2.0-2.0); VENOUS HCO3 24.7 MMOL/L (23.0-27.0); VENOUS PARTIAL PRESSURE O2 92.2 mmHg (30.0-50.0); VENOUS PH 7.347 UNITS (7.330-7.430); VENOUS STANDARD HCO3 23.4 MMOL/L; VENOUS TOTAL CO2 26.1 MMOL/L (24.0-28.0)
[2024-02-02 06:10] LABS: HEMATOCRIT 37.2 % (36.0-47.0); HEMOGLOBIN 12.9 g/dl (12.0-15.5); MEAN CORPUSCULAR HEMOGLOBIN 30.7 pg (27.0-33.0); MEAN CORPUSCULAR HGB CONC 34.7 g/dl (32.0-36.5); MEAN CORPUSCULAR VOLUME 88.6 fl (80.0-96.0); PLATELET COUNT, AUTOMATED 185 10^3/uL (150-450)
[2024-02-02 06:58] LABS: ALBUMIN 3.5 G/DL (3.2-5.2); ALKALINE PHOSPHATASE 180 U/L (35-104); ALT/SGPT 14 U/L (7.0-40); AST/SGOT 9 U/L (<34); BILIRUBIN,TOTAL 0.4 MG/DL (0.3-1.2); BLOOD UREA NITROGEN 11 MG/DL (9-23); CALCIUM LEVEL 9.3 MG/DL (8.3-10.6); CARBON DIOXIDE LEVEL 25 MMOL/L (20-31); CHLORIDE LEVEL 112 MMOL/L (98-107); CREATININE FOR GFR 0.61 MG/DL (0.55-1.30); GLOMERULAR FILTRATION RATE > 60.0 (>45); GLUCOSE, FASTING 96 MG/DL (74-106); MAGNESIUM LEVEL 2.3 MG/DL (1.8-2.4); POTASSIUM SERUM 3.7 MMOL/L (3.5-5.1); SODIUM LEVEL 144 MMOL/L (136-145); TOTAL PROTEIN 6.4 G/DL (5.7-8.2)
[2024-02-02 07:54] VITALS: BP_SYST 106; BP_SYST 98; BP_DIAS 52; BP_DIAS 58; TEMP 97.7; O2SAT 92; O2SAT 96
[2024-02-02] MEDS: DOCUSATE SODIUM 100MG CAPSULE PO SCH (08:10)
[2024-02-02] MEDS: ENOXAPARIN 40MG/0.4ML SYRINGE (J1650 PER 10MG) SC SCH (08:10)
[2024-02-02] MEDS ORDERED: ARIPiprazole 2 MG TAB PO SCH (09:00)
[2024-02-02 11:47] VITALS: BP 103/55; TEMP 96.5; O2SAT 99
[2024-02-02 12:06] VITALS: BP 124/70; TEMP 97.3; O2SAT 99
[2024-02-02] MEDS: FLUTICASONE HFA 110MCG 12GM INHALER (FLOVENT) INH SCH (12:57)
[2024-02-02] MEDS: SERTRALINE 100 MG TAB PO SCH (13:41)
[2024-02-02] MEDS: CETIRIZINE (ZyrTEC) 10 MG TAB PO SCH (13:42)
[2024-02-02 13:43] LABS: C REACTIVE PROTEIN QUANTITATIV < 0.40 MG/DL (<1.0); MAGNESIUM LEVEL 2.2 MG/DL (1.8-2.4)
[2024-02-02] MEDS: FLUTICASONE PROP 0.05% NASAL SPRAY 16 GM (FLONASE) NARES SCH (13:43)
[2024-02-02] MEDS: CARVedilol 12.5 MG TAB PO SCH (13:54)
[2024-02-02] MEDS: ETHACRYNIC ACID 25MG TAB PO SCH ×2 (13:54→20:53)
[2024-02-02] MEDS: SPIRONOLACTONE 25 MG TAB PO SCH (13:57)
[2024-02-02] MEDS: ALPRAZolam 0.5 MG TAB PO SCH (15:09)
[2024-02-02] MEDS: ACETAMINOPHEN 325 MG TAB PO PRN (15:10)
[2024-02-02 16:00] VITALS: BP 119/67; TEMP 97.5; O2SAT 98
[2024-02-02 20:00] VITALS: BP 119/68; TEMP 98.1; O2SAT 96
[2024-02-02] MEDS: MONTELUKAST 10 MG TAB PO SCH (20:53)
[2024-02-02] MEDS: OMEPRAZOLE 20MG CAP PO SCH (20:53)
[2024-02-02] MEDS: ATORVASTATIN 20 MG TAB PO SCH (20:53)
[2024-02-02] MEDS: TOPIRAMATE (TopAMAX) 100 MG TAB PO SCH (20:54)
[2024-02-02] MEDS: ARIPiprazole 2 MG TAB PO SCH (20:59)
[2024-02-02 21:00] VITALS: O2SAT 95
[2024-02-03] VITALS (7 sets, daily range): BP systolic 100–110; BP diastolic 60–63; TEMP 96.8–97.7; O2SAT 95
[2024-02-03 05:30] LABS: BLOOD UREA NITROGEN 9 MG/DL (9-23); CALCIUM LEVEL 8.9 MG/DL (8.3-10.6); CARBON DIOXIDE LEVEL 25 MMOL/L (20-31); CHLORIDE LEVEL 112 MMOL/L (98-107); CREATININE FOR GFR 0.66 MG/DL (0.55-1.30); GLOMERULAR FILTRATION RATE > 60.0 (>45); GLUCOSE, FASTING 96 MG/DL (74-106); MAGNESIUM LEVEL 2.3 MG/DL (1.8-2.4); POTASSIUM SERUM 3.9 MMOL/L (3.5-5.1); SODIUM LEVEL 142 MMOL/L (136-145)
[2024-02-03] MEDS: ALBUTEROL 90 MCG/ACT 8GM HFA INHALER INH PRN (07:50)
[2024-02-03] MEDS: CARVedilol 12.5 MG TAB PO SCH (08:26)
[2024-02-03] MEDS: ETHACRYNIC ACID 25MG TAB PO SCH (08:27)
[2024-02-03] MEDS ORDERED: [UNRECOGNIZED DRUG - CODE] PO ×2 (10:42)
[2024-02-03] MEDS ORDERED: CARV12.5 PO (10:42)
[2024-02-03] MEDS ORDERED: ALDA25TA2 PO (10:42)
== END 2024-02-03 12:29 | disposition home or self-care (01) | DRG 149 ==
LOC: EDBD 20:02 → M ED 20:02 → M ED INP 23:53 → M MSPAV 02-02 12:16
PROVIDERS: ADMIT Student in an Organized Health Care Education/Training Program; ATTEND Hospitalist
DX: R42 Dizziness and giddiness (principal); I50.22 Chronic systolic (congestive) heart failure; T44.6X5A Adverse effect of alpha-adrenoreceptor antagonists, initial encounter; I11.0 Hypertensive heart disease with heart failure; E78.5 Hyperlipidemia, unspecified; J45.909 Unspecified asthma, uncomplicated; F41.9 Anxiety disorder, unspecified; F32.A Depression, unspecified; I25.5 Ischemic cardiomyopathy; Z95.2 Presence of prosthetic heart valve; K58.9 Irritable bowel syndrome, unspecified; R55 Syncope and collapse; Z88.0 Allergy status to penicillin; Z88.8 Allergy status to other drugs, medicaments and biological substances; Z88.2 Allergy status to sulfonamides; Z91.018 Allergy to other foods; Z79.899 Other long term (current) drug therapy; K21.9 Gastro-esophageal reflux disease without esophagitis; M54.59 Other low back pain; Z95.0 Presence of cardiac pacemaker; I25.2 Old myocardial infarction; I25.10 Atherosclerotic heart disease of native coronary artery without angina pectoris; M54.2 Cervicalgia

== ENCOUNTER 2024-10-06 21:14 | Emergency (ER) | payer MEDICARE, OTHER ==
[~2024-10-06] VITALS: Ht 160 cm; Wt 65.9 kg
[~2024-10-06 21:14] MED LIST changes: +ACET-683 PO; +ALDA25TA2 PO; +ARIP1TAB4 PO; +ATOR40TA75 PO; +CARV12.5 PO; +ELIQ5TAB PO; +FLUT12AE2 INH; +JARD1TAB PO; +MECL25CH45 PO; +SPIR50TA4 PO; +TOPI-257 PO; -TOPI100T9 PO; +TREL1AER PO; +ZALE5CA PO; +ZOLO100T PO
[2024-10-06 21:52] LABS: BASO # 0.0 10^3/uL (0.0-0.2); BASO % 0.6 % (0.0-1.0); EOS # 0.2 10^3/uL (0.0-0.5); EOS % 2.6 % (0.0-3.0); LYMPH # 2.1 10^3/uL (1.5-5.0); LYMPH % 31.0 % (24.0-44.0); MONO # 0.6 10^3/uL (0.0-0.8); MONO % 8.7 % (2.0-8.0); NEUTROPHILS # 3.9 10^3/uL (1.5-8.5); NEUTROPHILS % 56.8 % (36.0-66.0); PLATELET COUNT, AUTOMATED 201 10^3/uL (150-450)
[2024-10-06 22:16] LABS: CK-MB VALUE MASS 2.1 NG/ML (<3.6)
[2024-10-06 22:18] LABS: CALCIUM LEVEL 8.0 MG/DL (8.3-10.6); CARBON DIOXIDE LEVEL 23.0 MMOL/L (20-31); CHLORIDE LEVEL 92.0 MMOL/L (98-107); CREATININE FOR GFR 0.78 MG/DL (0.55-1.30); GLOMERULAR FILTRATION RATE 82.7 (>45); POTASSIUM SERUM 3.7 MMOL/L (3.5-5.1); SODIUM LEVEL 125.0 MMOL/L (136-145)
[2024-10-06 22:20] LABS: CPK CREATINE PHOSPHOKINASE 118.0 U/L (34-145); MB/CK RELATIVE INDEX 1.77 (< OR =4)
[2024-10-06 22:56] LABS: CK-MB VALUE MASS 2.8 NG/ML (<3.6)
[2024-10-06 22:57] LABS: CPK CREATINE PHOSPHOKINASE 109.0 U/L (34-145); MB/CK RELATIVE INDEX 2.56 (< OR =4)
[2024-10-06 23:17] LABS: MAGNESIUM LEVEL 1.8 MG/DL (1.8-2.4)
[2024-10-07] MEDS: ONDANSETRON 4MG 2ML VIAL IV ONE (00:47)
[2024-10-07] MEDS: ALBUTEROL SULFATE 2.5 MG/0.5 ML INH CONCENTRATE NEB SOLN NEB ONE (00:47)
[2024-10-07] MEDS: NS (Normal Saline) 0.9% 1,000 ML IV ONE (00:52)
[2024-10-07] MEDS ORDERED: HYDR-643 PO (06:40)
[2024-10-07 06:48] VITALS: BP 99/56; TEMP 96.1; O2SAT 95
[2024-10-07] MEDS: ALPRAZolam 0.5 MG TAB PO ONE (06:52)
== END 2024-10-07 06:55 | disposition home or self-care (01) ==
LOC: M ED 21:14
DX: R07.9 Chest pain, unspecified (principal); F41.9 Anxiety disorder, unspecified; I25.2 Old myocardial infarction; I10 Essential (primary) hypertension; E78.5 Hyperlipidemia, unspecified; J44.9 Chronic obstructive pulmonary disease, unspecified; K21.9 Gastro-esophageal reflux disease without esophagitis; K58.9 Irritable bowel syndrome, unspecified; F17.200 Nicotine dependence, unspecified, uncomplicated; Z79.01 Long term (current) use of anticoagulants; Z79.52 Long term (current) use of systemic steroids; Z79.02 Long term (current) use of antithrombotics/antiplatelets; Z79.899 Other long term (current) drug therapy; Z88.0 Allergy status to penicillin; Z88.2 Allergy status to sulfonamides; Z88.8 Allergy status to other drugs, medicaments and biological substances; Z91.018 Allergy to other foods; Z91.048 Other nonmedicinal substance allergy status; Z95.0 Presence of cardiac pacemaker; Z86.79 Personal history of other diseases of the circulatory system
CPT/HCPCS: 70450; 71045; 80048; 82550; 82553; 83735; 84484; 85025; 93005; 93041; 94760; 96361; 96374; 99285; J2405

== ENCOUNTER 2025-03-09 14:44 | Emergency (ER) | payer MEDICARE, OTHER ==
[~2025-03-09] VITALS: Ht 157.5 cm; Wt 58.1 kg
[~2025-03-09 14:44] MED LIST changes: +HYDR-643 PO
[2025-03-09 15:15] LABS: BASO # 0.0 10^3/uL (0.0-0.2); BASO % 0.6 % (0.0-1.0); EOS # 0.1 10^3/uL (0.0-0.5); EOS % 2.3 % (0.0-3.0); LYMPH # 1.5 10^3/uL (1.5-5.0); LYMPH % 29.2 % (24.0-44.0); MONO # 0.4 10^3/uL (0.0-0.8); MONO % 8.2 % (2.0-8.0); NEUTROPHILS # 3.1 10^3/uL (1.5-8.5); NEUTROPHILS % 59.5 % (36.0-66.0); PLATELET COUNT, AUTOMATED 172 10^3/uL (150-450)
[2025-03-09 15:37] LABS: CK-MB VALUE MASS 2.0 NG/ML (<3.6)
[2025-03-09 15:39] LABS: CALCIUM LEVEL 7.9 MG/DL (8.3-10.6); CARBON DIOXIDE LEVEL 26.0 MMOL/L (20-31); CHLORIDE LEVEL 106.0 MMOL/L (98-107); CREATININE FOR GFR 0.81 MG/DL (0.55-1.30); GLOMERULAR FILTRATION RATE 79.0 (>45); POTASSIUM SERUM 3.5 MMOL/L (3.5-5.1); SODIUM LEVEL 138.0 MMOL/L (136-145)
[2025-03-09 15:42] LABS: CPK CREATINE PHOSPHOKINASE 106.0 U/L (34-145); MB/CK RELATIVE INDEX 1.88 (< OR =4)
[2025-03-09 16:41] LABS: CK-MB VALUE MASS 1.6 NG/ML (<3.6)
[2025-03-09 16:43] LABS: CPK CREATINE PHOSPHOKINASE 97.0 U/L (34-145); MB/CK RELATIVE INDEX 1.64 (< OR =4)
[2025-03-09] MEDS: ASPIRIN 81 MG CHEWABLE TABLET PO ONE (16:47)
[2025-03-09] MEDS: NS 500 ML IV ONE (16:47)
[2025-03-09] MEDS: CALCIUM GLUCONATE 1,000 MG in DEXTROSE 5% (D5W) MINI-BAG PLU 100 ML IV ONE (16:53)
[2025-03-09] MEDS ORDERED: ISOVUE-370 76% 100 ML VIAL As Ordered ONE (16:54)
[2025-03-09 17:19] LABS: CK-MB VALUE MASS 1.5 NG/ML (<3.6)
[2025-03-09 17:21] LABS: CPK CREATINE PHOSPHOKINASE 104.0 U/L (34-145); MB/CK RELATIVE INDEX 1.44 (< OR =4)
[2025-03-09 18:30] LABS: CK-MB VALUE MASS 1.4 NG/ML (<3.6)
[2025-03-09 18:45] LABS: CPK CREATINE PHOSPHOKINASE 101.0 U/L (34-145); MB/CK RELATIVE INDEX 1.38 (< OR =4)
[2025-03-09 19:22] VITALS: BP 107/64; TEMP 98.3; O2SAT 99
== END 2025-03-09 19:24 | disposition home or self-care (01) ==
LOC: M ED 14:44
DX: R07.9 Chest pain, unspecified (principal); R00.1 Bradycardia, unspecified; I10 Essential (primary) hypertension; E78.5 Hyperlipidemia, unspecified; K21.9 Gastro-esophageal reflux disease without esophagitis; J45.909 Unspecified asthma, uncomplicated; M54.50 Low back pain, unspecified; F32.A Depression, unspecified; F41.9 Anxiety disorder, unspecified; I25.2 Old myocardial infarction; K58.9 Irritable bowel syndrome, unspecified; Z86.79 Personal history of other diseases of the circulatory system; Z87.891 Personal history of nicotine dependence; Z91.018 Allergy to other foods; Z88.0 Allergy status to penicillin; Z88.8 Allergy status to other drugs, medicaments and biological substances; Z88.2 Allergy status to sulfonamides; Z79.52 Long term (current) use of systemic steroids; Z79.899 Other long term (current) drug therapy; Z79.01 Long term (current) use of anticoagulants; Z79.02 Long term (current) use of antithrombotics/antiplatelets
CPT/HCPCS: 71045; 71275; 80048; 82550; 82553; 84484; 85025; 93005; 93041; 94760; 96374; 99285; J0612; Q9967